=== PATIENT | female | born 1970 | race Caucasian/White ===

== ENCOUNTER 2016-12-24 19:38 | Emergency (ER) | payer OTHER ==
[~2016-12-24] VITALS: Ht 162.6 cm; Wt 72.9 kg
[~2016-12-24 19:38] MED LIST: ACID CONTROL150 MG PO; ANAPROX DS550 M1 PO; ATARAX,VISTARIL25 MG PO; BUSPIRONE HCL5 MG PO; CARAFATE100 MG/ML PO; DURAGESIC12 MCG TD; FLEXERIL10 MG PO; GABAPENTIN300 MG PO; HYDROCODON-ACE1 EAC7 PO; KEFLEX500 MG PO; LYRICA150 MG PO; MOBIC7.5 MG PO; NAPROSYN500 MG PO; NOHOMEMEDS; NORCO 5/3251 TABLET PO; OXYCODONE HCL15 MG PO; ULTRAM50 MG PO; XANAX0.5 MG PO; ZANAFLEX4 MG PO; ZIPRASIDONE HCL40 MG PO; ZIPRASIDONE HCL60 MG PO; ZOFRAN4 MG PO
[2016-12-24 20:50] VITALS: BP 124/81
== END 2016-12-24 20:51 | disposition home or self-care (01) ==
LOC: EME 19:38
DX: S05.01XA Injury of conjunctiva and corneal abrasion without foreign body, right eye, initial encounter (principal); W50.4XXA Accidental scratch by another person, initial encounter; F17.200 Nicotine dependence, unspecified, uncomplicated
CPT/HCPCS: 99281; 99283